=== PATIENT | female | born 1980 | race Caucasian/White ===

== ENCOUNTER 2016-10-19 03:54 | Emergency (ER) | payer MEDICARE, MEDICAID ==
[~2016-10-19] VITALS: Ht 172.7 cm; Wt 143.2 kg
[~2016-10-19 03:54] MED LIST: ABILIFY15 MG PO; ABILIFY20 MG PO; ACETIC ACID2 % AU; AMBIEN10 MG PO; ATIVAN1 MG PO; BACTRIM DS1 TAB OR; BIPOLAR MEDICATION; CELEXA40 M1 OR; CHERATUSSIN OR; CLEOCIN300 MG PO; CYCLOBENZAPRINE10 MG PO; DARVOCET N-100100 - OR; DEPAKOTE250 MG OR; DOXYCYCL HYC100 MG PO; EFFEXOR XR150 MG OR; FLONASE NASAL50 MCG; IMODIUM2 MG PO; KLONOPIN1 MG OR; LITHIUM CARB150 MG PO; LITHIUM CARB300 MG; LYRICA50 MG PO; MEDDOSEPAK PO; NAPROSYN500 MG PO; NYSTATIN100000 M2 EX; NYSTATIN100000 M3 TOP; PERCOCET 5/325M1 TAB OR; PERCOCET 5/325M1 TAB PO; PERCOCET1 TA4 PO; PROZAC10 MG PO; PROZAC20 MG OR; PROZAC40 MG PO; REMERON15 MG PO; RISPERDAL 4MG TA4 MG PO; RISPERDAL2 MG PO; RITALIN10 MG PO; SMZ-TMP DS1 TAB PO; SOLU-MEDROL125 MG IM; TOPAMAX100 MG PO; TRAMADOL HCL50 MG PO; TRAZODONE300 MG PO; ULTRAM50 M1 PO; VENTOLIN HFA IN; VOLTAREN - GENE75 MG PO; VOLTAREN75 MG PO; WELLBUTRIN X1 PO; WELLBUTRIN150 M1 OR; WELLBUTRIN150 M2 PO; ZANAFLEX4 M2 PO; ZITHROMAX250 MG PO; ZOFRAN ODT4 MG PO
[2016-10-19] MEDS ORDERED: PERCOCET 10/31 COMBO PO (04:17)
[2016-10-19] MEDS ORDERED: PROZAC20 MG PO (04:20)
[2016-10-19] MEDS ORDERED: LATUDA60 MG PO (04:21)
[2016-10-19] MEDS ORDERED: FLEXERIL PO (04:22)
[2016-10-19] MEDS ORDERED: VYVANSE50 MG PO (04:24)
[2016-10-19] MEDS ORDERED: XANAX1 MG PO (04:24)
[2016-10-19 06:29] LABS: HEMATOCRIT 41.5 % (37.0-47.0); HEMOGLOBIN 13.4 g/dl (12.0-16.0); IMMATURE GRANULOCYTES 0.7 % (0.0-1.0); MEAN CELL VOLUME 95.2 fL CALC (80.0-100.0); MEAN CORPUSCULAR HGB 30.7 pG CALC (26.0-32.0); MEAN CORPUSCULAR HGB CONC 32.3 g/L CALC (32.0-36.0); NEUT# 14.52 thou/uL (2.00-7.15); RED BLOOD COUNT 4.36 mill/uL (4.20-5.60); RED CELL DISTRI WIDTH 12.2 % (11.5-15.5)
[2016-10-19 06:33] LABS: URINE BILIRUBIN - DIPSTICK NEGATIVE (NEGATIVE); URINE BLOOD DIPSTICK NEGATIVE (NEGATIVE); URINE CLARITY CLEAR; URINE COLOR YELLOW; URINE GLUCOSE - DIPSTICK NEGATIVE (NEGATIVE); URINE KETONE NEGATIVE (NEGATIVE); URINE LEUK ESTERASE NEGATIVE (NEGATIVE); URINE NITRITE - DIPSTICK NEGATIVE (Negative); URINE PROTEIN - DIPSTICK NEGATIVE (NEG-TRACE); URINE SPECIFIC GRAVITY <=1.005; URINE UROBILINOGEN - DIPSTICK 0.2 E.U./dL (0.2)
[2016-10-19 06:46] LABS: ALBUMIN 4.7 g/dL (3.2-5.0); ALKALINE PHOSPHATASE 191 u/l (38-126); ANION GAP 18 (6-22 (CALC)); BILIRUBIN, TOTAL 0.5 mg/dL (0.0-1.4); BUN 12 mg/dL (7-17); BUN/CREATININE RATIO 14 (12-20 (CALC)); CALCIUM 10.4 mg/dL (8.4-10.2); CARBON DIOXIDE 26 mmol/l (22-30); CHLORIDE 100 mmol/l (95-108); CREATININE 0.9 mg/dL (0.5-1.0); GFR > 60 ML/MIN (>=60 (CALC)); GFR FOR AFR.AMER. > 60 ML/MIN (>=60 (CALC)); GLUCOSE 96 mg/dL (65-105); POTASSIUM 3.8 mmol/l (3.5-5.1); SGOT/AST 23 u/l (14-36); SGPT/ALT 25 u/l (9-52); SODIUM 140 mmol/l (137-146); TOTAL PROTEIN 8.7 g/dL (6.3-8.2)
[2016-10-19 06:49] LABS: ACT PARTIAL THROMBO TIME 27.8 SECONDS (20.0-32.5); PROTHROMBIN TIME 10.6 SECONDS (9.0-12.5)
[2016-10-19 10:45] VITALS: BP 94/52
== END 2016-10-19 10:45 ==
LOC: ED 03:54 → ED-I 04:47 → ED 04:47 → ED-I 05:40 → ED 10:45
PROVIDERS: Emergency Medicine
PROC: 0T9B70Z Drainage of Bladder with Drainage Device, Via Natural or Artificial Opening (ICD-10-PCS; principal; 2016-10-19)
DX: S72.122A Displaced fracture of lesser trochanter of left femur, initial encounter for closed fracture (principal); M25.552 Pain in left hip; F41.9 Anxiety disorder, unspecified; F32.9 Major depressive disorder, single episode, unspecified; F17.210 Nicotine dependence, cigarettes, uncomplicated

== ENCOUNTER 2016-11-11 10:11 | Emergency (ER) | payer MEDICARE, MEDICAID ==
[~2016-11-11] VITALS: Ht 172.7 cm; Wt 140.0 kg
[~2016-11-11 10:11] MED LIST changes: +FLEXERIL PO; +LATUDA60 MG PO; +PERCOCET 10/31 COMBO PO; +PROZAC20 MG PO; +VYVANSE50 MG PO; +XANAX1 MG PO
[2016-11-11 11:54] VITALS: BP 121/74
== END 2016-11-11 11:54 | disposition home or self-care (01) ==
LOC: ED 10:11
DX: Z48.02 Encounter for removal of sutures (principal); G89.18 Other acute postprocedural pain; M79.605 Pain in left leg; R22.42 Localized swelling, mass and lump, left lower limb

== ENCOUNTER 2017-05-31 09:52 | Emergency (ER) | payer MEDICARE, MEDICAID ==
[~2017-05-31] VITALS: Ht 172.7 cm; Wt 123.0 kg
[2017-05-31] MEDS ORDERED: VISTARIL25 MG PO (10:10)
[2017-05-31] MEDS ORDERED: NORCO1 TA1 PO (10:10)
[2017-05-31] MEDS ORDERED: WELLBUTRIN SR150 MG PO (10:11)
[2017-05-31] MEDS ORDERED: ULTRAM50 M1 PO (10:58)
[2017-05-31] MEDS ORDERED: CLEOCIN300 MG PO (10:58)
[2017-05-31 11:03] VITALS: BP 144/81
== END 2017-05-31 11:10 | disposition home or self-care (01) ==
LOC: ED 09:52
DX: K04.7 Periapical abscess without sinus (principal); K08.89 Other specified disorders of teeth and supporting structures; S02.5XXA Fracture of tooth (traumatic), initial encounter for closed fracture; F17.210 Nicotine dependence, cigarettes, uncomplicated

== ENCOUNTER → 2018-04-27 | Outpatient (REF) | payer MEDICARE, MEDICAID ==
[~2018-04-27] MED LIST changes: +NORCO1 TA1 PO; +VISTARIL25 MG PO; +WELLBUTRIN SR150 MG PO
[2018-04-27 14:16] LABS: HEMATOCRIT 38.8 % (37.0-47.0); HEMOGLOBIN 12.1 g/dl (12.0-16.0); IMMATURE GRANULOCYTES 0.8 % (0.0-5.0); MEAN CELL VOLUME 92.2 fL CALC (80.0-100.0); MEAN CORPUSCULAR HGB 28.7 pG CALC (26.0-32.0); MEAN CORPUSCULAR HGB CONC 31.2 g/L CALC (32.0-36.0); NEUT# 9.46 thou/uL (2.00-7.15); RED BLOOD COUNT 4.21 mill/uL (4.20-5.60); RED CELL DISTRI WIDTH 13.8 % (11.5-15.5)
== END | disposition home or self-care (01) ==
LOC: LAB 13:57
PROVIDERS: ATTEND Nurse Practitioner Family
DX: D72.829 Elevated white blood cell count, unspecified (principal)

== ENCOUNTER 2021-09-02 11:28 | Emergency (ER) | payer MEDICARE, MEDICAID ==
[~2021-09-02] VITALS: Ht 172.7 cm; Wt 105.0 kg
[2021-09-02 12:00] LABS: URINE BILIRUBIN - DIPSTICK NEGATIVE (NEGATIVE); URINE BLOOD DIPSTICK NEGATIVE (NEGATIVE); URINE COLOR YELLOW; URINE GLUCOSE - DIPSTICK NEGATIVE (NEGATIVE); URINE KETONE NEGATIVE (NEGATIVE); URINE LEUK ESTERASE NEGATIVE (NEGATIVE); URINE NITRITE - DIPSTICK NEGATIVE (Negative); URINE PROTEIN - DIPSTICK NEGATIVE (NEG-TRACE); URINE SPECIFIC GRAVITY <=1.005; URINE UROBILINOGEN - DIPSTICK 0.2 E.U./dL (0.2)
[2021-09-02] MEDS ORDERED: PROTONIX40 M2 PO (12:14)
[2021-09-02] MEDS ORDERED: CIPROFLOXACN500 MG PO (12:14)
[2021-09-02] MEDS ORDERED: ZOFRAN4 MG/TAB PO (12:14)
[2021-09-02 12:42] VITALS: BP 100/58
== END 2021-09-02 12:57 | disposition home or self-care (01) ==
LOC: ED 11:28
PROVIDERS: Family Medicine
DX: R30.0 Dysuria (principal); F41.9 Anxiety disorder, unspecified; F32.A Depression, unspecified; F17.200 Nicotine dependence, unspecified, uncomplicated; Z90.49 Acquired absence of other specified parts of digestive tract; Z88.1 Allergy status to other antibiotic agents

== ENCOUNTER → 2021-12-25 | Emergency (ER) | payer MEDICARE, MEDICAID ==
[2021-12-25] VITALS (8 sets, daily range): BP systolic 94–117; BP diastolic 60–80
[~2021-12-25] VITALS: Ht 172.7 cm; Wt 86.4 kg
[~2021-12-25] MED LIST changes: +CIPROFLOXACN500 MG PO; +METRONIDAZOLE500 MG PO; +PROTONIX40 M2 PO; +ZOFRAN4 MG/TAB PO
[2021-12-25 16:32] LABS: HEMATOCRIT 41.5 % (37.0-47.0); HEMOGLOBIN 12.8 g/dl (12.0-16.0); IMMATURE GRANULOCYTES 1.1 % (0.0-5.0); MEAN CORPUSCULAR HGB 31.4 pG CALC (26.0-32.0); MEAN CORPUSCULAR HGB CONC 30.8 g/dL CAL (32.0-36.0); NEUT# 9.09 thou/uL (2.00-7.15); RED BLOOD COUNT 4.07 mill/uL (4.20-5.60); RED CELL DISTRI WIDTH 12.2 % (11.5-15.5)
[2021-12-25 16:46] LABS: ALBUMIN 1.9 g/dL (3.2-5.0); ALKALINE PHOSPHATASE 217 u/l (38-126); ANION GAP 7 (6-22 (CALC)); BILIRUBIN, TOTAL 0.9 mg/dL (0.0-1.4); BUN 10 mg/dL (7-17); BUN/CREATININE RATIO 12 (12-20 (CALC)); CARBON DIOXIDE 28 mmol/l (22-30); CHLORIDE 107 mmol/l (95-108); CREATININE 0.8 mg/dL (0.5-1.0); GFR FOR AFR.AMER. > 60 ML/MIN (>=60 (CALC)); GFR OTHER RACES > 60 ML/MIN (>=60 (CALC)); LIPASE 23 u/l (23-300); POTASSIUM 3.8 mmol/l (3.5-5.1); SGOT/AST 27 u/l (14-36); SODIUM 138 mmol/l (137-146)
[2021-12-25 17:48] LABS: URINE BILIRUBIN - DIPSTICK NEGATIVE (NEGATIVE); URINE BLOOD DIPSTICK NEGATIVE (NEGATIVE); URINE COLOR DK. YELLOW; URINE GLUCOSE - DIPSTICK NEGATIVE (NEGATIVE); URINE KETONE TRACE mg/dL (NEGATIVE); URINE LEUK ESTERASE NEGATIVE (NEGATIVE); URINE NITRITE - DIPSTICK NEGATIVE (Negative); URINE PH 6.5 (4.5-8.0); URINE PROTEIN - DIPSTICK NEGATIVE (NEG-TRACE)
== END | disposition home or self-care (01) ==
LOC: ED 15:54
PROVIDERS: Family Medicine
DX: K29.70 Gastritis, unspecified, without bleeding (principal); K52.9 Noninfective gastroenteritis and colitis, unspecified; F41.9 Anxiety disorder, unspecified; F32.9 Major depressive disorder, single episode, unspecified; F17.200 Nicotine dependence, unspecified, uncomplicated; Z20.822 Contact with and (suspected) exposure to COVID-19
CPT/HCPCS: Q9967

== ENCOUNTER 2021-12-31 16:26 | Observation (INO) | payer MEDICARE, MEDICAID ==
[2021-12-31] VITALS (38 sets, daily range): BP systolic 67–124; BP diastolic 50–85
[~2021-12-31] VITALS: Ht 172.7 cm; Wt 88.0 kg
[~2021-12-31 16:26] MED LIST changes: -NORCO1 TA1 PO; +PERCOCET1 TA2 PO
[2021-12-31 17:04] LABS: HEMATOCRIT 38.5 % (37.0-47.0); IMMATURE GRANULOCYTES 1.3 % (0.0-5.0); MEAN CELL VOLUME 104.6 fL CALC (80.0-100.0); MEAN CORPUSCULAR HGB 32.6 pG CALC (26.0-32.0); MEAN CORPUSCULAR HGB CONC 31.2 g/dL CAL (32.0-36.0); NEUT# 9.67 thou/uL (2.00-7.15); RED BLOOD COUNT 3.68 mill/uL (4.20-5.60)
[2021-12-31 17:22] LABS: ALBUMIN 1.6 g/dL (3.2-5.0); ALKALINE PHOSPHATASE 179 u/l (38-126); BUN 11 mg/dL (7-17); BUN/CREATININE RATIO 13 (12-20 (CALC)); CHLORIDE 108 mmol/l (95-108); CREATININE 0.9 mg/dL (0.5-1.0); GFR FOR AFR.AMER. > 60 ML/MIN (>=60 (CALC)); GFR OTHER RACES > 60 ML/MIN (>=60 (CALC)); LIPASE 28 u/l (23-300); SGOT/AST 25 u/l (14-36); SODIUM 135 mmol/l (137-146); TOTAL PROTEIN 4.6 g/dL (6.3-8.2)
[2021-12-31 17:28] LABS: ANION GAP 10 (6-22 (CALC)); CARBON DIOXIDE 22 mmol/l (22-30); POTASSIUM 4.8 mmol/l (3.5-5.1)
[2021-12-31 19:01] LABS: URINE BILIRUBIN - DIPSTICK NEGATIVE (NEGATIVE); URINE BLOOD DIPSTICK SMALL (NEGATIVE); URINE COLOR YELLOW; URINE GLUCOSE - DIPSTICK NEGATIVE (NEGATIVE); URINE KETONE NEGATIVE (NEGATIVE); URINE LEUK ESTERASE NEGATIVE (NEGATIVE); URINE PROTEIN - DIPSTICK NEGATIVE (NEG-TRACE); URINE SPECIFIC GRAVITY 1.015; URINE UROBILINOGEN - DIPSTICK 0.2 E.U./dL (0.2)
[2021-12-31 19:06] LABS: URINE NITRITE - DIPSTICK NEGATIVE (Negative)
[2021-12-31 19:16] LABS: URINE SQUAMOUS EPITHELIAL CELL MANY EPI/hpf (0-FEW)
[2021-12-31] MEDS ORDERED: HALDOL1 M1 PO (20:08)
[2021-12-31] MEDS ORDERED: PROZAC20 MG PO (20:08)
[2021-12-31] MEDS ORDERED: SEROQUEL XR400 MG PO (20:09)
[2021-12-31] MEDS ORDERED: ADDERALL10 MG PO (20:09)
[2022-01-01 04:03] VITALS: BP 100/49
[2022-01-01 08:20] VITALS: BP 108/62
[2022-01-01 08:37] LABS: HEMATOCRIT 37.8 % (37.0-47.0); HEMOGLOBIN 11.7 g/dl (12.0-16.0); MEAN CORPUSCULAR HGB 32.5 pG CALC (26.0-32.0); RED BLOOD COUNT 3.6 mill/uL (4.20-5.60); RED CELL DISTRI WIDTH 14.3 % (11.5-15.5)
[2022-01-01 10:00] LABS: BUN 13 mg/dL (7-17); BUN/CREATININE RATIO 17 (12-20 (CALC)); CARBON DIOXIDE 20 mmol/l (22-30); CHLORIDE 113 mmol/l (95-108); CREATININE 0.8 mg/dL (0.5-1.0); GFR FOR AFR.AMER. > 60 ML/MIN (>=60 (CALC)); GFR OTHER RACES > 60 ML/MIN (>=60 (CALC)); MAGNESIUM 1.6 mg/dL (1.6-2.3); SODIUM 137 mmol/l (137-146)
[2022-01-01 10:01] LABS: ANION GAP 10 (6-22 (CALC)); POTASSIUM 5.5 mmol/l (3.5-5.1)
[2022-01-01] MEDS ORDERED: VITAMIN D32000 UNI2 PO (13:23)
[2022-01-01] MEDS ORDERED: VITAMIN B-122500 MCG PO (13:24)
[2022-01-01] MEDS ORDERED: LIPITOR10 M1 PO (13:25)
[2022-01-01 15:07] VITALS: BP 98/63
[2022-01-01 15:44] VITALS: BP 120/58
[2022-01-01 19:38] VITALS: BP 116/74
[2022-01-02 01:09] VITALS: BP 95/44
[2022-01-02 05:44] VITALS: BP 96/59
[2022-01-02 06:08] LABS: HEMATOCRIT 35.6 % (37.0-47.0); HEMOGLOBIN 10.8 g/dl (12.0-16.0); IMMATURE GRANULOCYTES 0.7 % (0.0-5.0); MEAN CELL VOLUME 107.2 fL CALC (80.0-100.0); MEAN CORPUSCULAR HGB 32.5 pG CALC (26.0-32.0); MEAN CORPUSCULAR HGB CONC 30.3 g/dL CAL (32.0-36.0); NEUT# 12.28 thou/uL (2.00-7.15); RED BLOOD COUNT 3.32 mill/uL (4.20-5.60); RED CELL DISTRI WIDTH 14.2 % (11.5-15.5)
[2022-01-02 06:33] LABS: ANION GAP 7 (6-22 (CALC)); BUN 10 mg/dL (7-17); BUN/CREATININE RATIO 13 (12-20 (CALC)); CARBON DIOXIDE 22 mmol/l (22-30); CHLORIDE 113 mmol/l (95-108); CREATININE 0.8 mg/dL (0.5-1.0); GFR FOR AFR.AMER. > 60 ML/MIN (>=60 (CALC)); GFR OTHER RACES > 60 ML/MIN (>=60 (CALC)); MAGNESIUM 1.6 mg/dL (1.6-2.3); SODIUM 138 mmol/l (137-146)
[2022-01-02 08:00] VITALS: BP 96/59
[2022-01-02] MEDS ORDERED: METRONIDAZOLE500 MG PO (11:39)
[2022-01-02] MEDS ORDERED: CIPROFLOXACN500 MG PO (11:40)
[2022-01-02] MEDS ORDERED: ONDANSETRON4 MG PO (11:42)
[2022-01-02 16:00] VITALS: BP 105/52
== END 2022-01-02 16:14 | disposition home or self-care (01) ==
LOC: ED 16:26 → ED-I 18:00 → ED 20:30 → MS2 20:31
PROVIDERS: Family Medicine; Nurse Practitioner; ADMIT Hospitalist; ATTEND Hospitalist
DX: K50.00 Crohn's disease of small intestine without complications (principal); E87.5 Hyperkalemia; E87.2 Acidosis; M79.7 Fibromyalgia; F20.9 Schizophrenia, unspecified; F41.9 Anxiety disorder, unspecified; F31.9 Bipolar disorder, unspecified; F17.210 Nicotine dependence, cigarettes, uncomplicated; Z20.822 Contact with and (suspected) exposure to COVID-19
CPT/HCPCS: J2060; Q9967

== ENCOUNTER 2022-01-11 17:50 | Observation (INO) | payer MEDICARE, MEDICAID ==
[~2022-01-11] VITALS: Ht 172.7 cm; Wt 83.0 kg
[2022-01-11] VITALS (13 sets, daily range): BP systolic 94–171; BP diastolic 57–149
[~2022-01-11 17:50] MED LIST changes: +ADDERALL10 MG PO; +HALDOL1 M1 PO; +LIPITOR10 M1 PO; +ONDANSETRON4 MG PO; +SEROQUEL XR400 MG PO; +VITAMIN B-122500 MCG PO; +VITAMIN D32000 UNI2 PO
--- NOTE | 2022-01-11 18:04 | NUR ---
PT TO [facility]AN[facility] VIA
--- NOTE | 2022-01-11 18:56 | NUR ---
ATTEMPTED TO PLACE AN IV 4 TIMES. UNABLE.
--- NOTE | 2022-01-11 19:00 | NUR ---
ASSUMED CARE OF PT. RESTINGIN ROOM WITH SUPPORT PERSON AT BS.
--- NOTE | 2022-01-11 19:00 | NUR ---
ASSUMED CARE OF PT. PT RESTING WITH SUPPORT PERSON AT BS.
[2022-01-11 19:21] LABS: HEMATOCRIT 38.8 % (37.0-47.0); HEMOGLOBIN 11.6 g/dl (12.0-16.0); IMMATURE GRANULOCYTES 0.5 % (0.0-5.0); MEAN CORPUSCULAR HGB CONC 29.9 g/dL CAL (32.0-36.0); NEUT# 12.07 thou/uL (2.00-7.15); RED BLOOD COUNT 3.41 mill/uL (4.20-5.60); RED CELL DISTRI WIDTH 16.7 % (11.5-15.5)
[2022-01-11 19:22] LABS: MEAN CELL VOLUME 113.8 fL CALC (80.0-100.0)
[2022-01-11 19:32] LABS: ALBUMIN 1.7 g/dL (3.2-5.0); ALKALINE PHOSPHATASE 147 u/l (38-126); ANION GAP 7 (6-22 (CALC)); BILIRUBIN, TOTAL 0.7 mg/dL (0.0-1.4); BUN 13 mg/dL (7-17); BUN/CREATININE RATIO 15 (12-20 (CALC)); CARBON DIOXIDE 23 mmol/l (22-30); CHLORIDE 111 mmol/l (95-108); CREATININE 0.8 mg/dL (0.5-1.0); GFR FOR AFR.AMER. > 60 ML/MIN (>=60 (CALC)); GFR OTHER RACES > 60 ML/MIN (>=60 (CALC)); LIPASE 23 u/l (23-300); POTASSIUM 4.1 mmol/l (3.5-5.1); SGOT/AST 30 u/l (14-36); SODIUM 137 mmol/l (137-146); TOTAL PROTEIN 4.7 g/dL (6.3-8.2)
--- NOTE | 2022-01-11 20:00 | NUR ---
Reassessment of patient completed. No distress noted.
--- NOTE | 2022-01-11 21:00 | NUR ---
Reassessment of patient completed. No distress noted.
--- NOTE | 2022-01-11 22:00 | NUR ---
Reassessment of patient completed. No distress noted.
--- NOTE | 2022-01-11 23:00 | NUR ---
Reassessment of patient completed. No distress noted.
[2022-01-11 23:24] LABS: URINE BLOOD DIPSTICK NEGATIVE (NEGATIVE); URINE COLOR YELLOW; URINE GLUCOSE - DIPSTICK NEGATIVE (NEGATIVE); URINE KETONE TRACE mg/dL (NEGATIVE); URINE LEUK ESTERASE TRACE (NEGATIVE); URINE PH 6.5 (4.5-8.0); URINE PROTEIN - DIPSTICK 30 mg/dL (NEG-TRACE); URINE SPECIFIC GRAVITY 1.025; URINE UROBILINOGEN - DIPSTICK 0.2 E.U./dL (0.2)
[2022-01-11 23:25] LABS: URINE BILIRUBIN - DIPSTICK MODERATE (NEGATIVE); URINE NITRITE - DIPSTICK POSITIVE (Negative)
[2022-01-11 23:29] LABS: URINE BACTERIA MANY hpf; URINE SQUAMOUS EPITHELIAL CELL MANY EPI/hpf (0-FEW); URINE WBC 20-50 WBC/hpf (0-5)
[2022-01-12] VITALS (8 sets, daily range): BP systolic 90–124; BP diastolic 34–83
--- NOTE | 2022-01-12 00:01 | NUR ---
Reassessment of patient completed. No distress noted.
--- NOTE | 2022-01-12 01:00 | NUR ---
PT TRANSFERRED TO MED SURG.
--- NOTE | 2022-01-12 01:30 | NUR ---
PATIENT ADMITTED FROM ER VIA STRETCHER WITH ER STAFF IN ATTENDANCE. PATIENT STATES THAT SHE IS UNABLE TO ASSIST TO MOVE TO THE BED-MAX ASSIST TO TRANSFER TO THE BED. PATIENT COLOR IS PALE. SKIN IS COOL AND DRY. IV SITE TO RIGHT HAND INTACT WITH GOOD BLOOD RETURN. IVF HUNG AND INFUSING AT 125CC/HR. PATIENT WITH MULTIPLE COMPLAINTS REGUARDING ABD PAIN, NAUSEA AND VOMITTING-STATES THAT THESE SX HAVE BEEN GOING ON FOR ALONG TIME. UNABLE TO TELL WHEN HER LAST BM WAS-MAYBE 2 DAYS AGO. ABD IS SOFT WITH HYPOACTIVE BS. STATES THAT SHE WAS REFERRED TO DR. MARY ELLEN MARQUEZ WHEN DISCARGED FROM [facility] A COUPLE OF WEEKS AGO BUT TESTING WAS NOT COMPLETED FOR SOME REASON. LUNGS ARE CLEAR. PATIENT STATES THAT SHE HAS HAD LARGE WEIGHT LOSS OVER LAST FEW MONITHS. LONG PSY HX INCLUDING BIPOLAR, SCHIZOPHRENIA, DEPRESSION AND ANXIETY. ALSO CHRONIC BACK AND LEFT LEG PAIN. SEE PSY AND PAIN MANAGEMENT FOR MEDS. PATIENT WITH MULTIPLE SCABBED AREAS ON BOTH ARMS WELL SCRATHCHES-STATES THAT THEY ARE FROM HER CAT AND BURNED HER ARMS GETTING SOMETHING OUT OF THE OVEN. ORFIENTED TO ROOM AND SURROUNDINGS. INSTRUCTED ON USE OF NURSE CALL LIGHT SYSTEM AND TV. SAFETY PRECAUTIONS REINFORCED. CALL LIGHT IN REACH. WILL CONT TO MONITOR.
--- NOTE | 2022-01-12 02:00 | NUR ---
PATIENT MOVED VIA BED TO ROOM 260 TO BE CLOSER TO THE NURSES STATION. STATES THAT SHE HAS HAD FREQUENT FALLS AT HOME AND THE LAST TIME SHE WAS HER AT THIS HOSPITAL. STATES THAT SHE CRAWLS TO GET TO THE BATHROOM AT HOME. STATES THAT SHE HAS SEVERE WEAKNESS AND CAN'T WALK. PATIENT MAX ASSIST TO THE BSC TO VOID AND THEN ASSISTED BACK INTO BED. BED ALARM IN PLACE FOR PATIENT SAFETY. CALL LIGHT IN REACH. WILL CONT TO MONITOR.
--- NOTE | 2022-01-12 02:15 | NUR ---
REPEAT LACTIC ACID IS 1.3. WILL CONT TO MONITOR.
--- NOTE | 2022-01-12 04:48 | NUR ---
PATIENT RESTING IN BED-VOMITTED MODERATE AMT. TOO EARLY FOR MORE ZOFRAN AT THIS TIME. EMOTIONAL AND C/O PAIN. IVF PATENT AND INFUSING VIA RIGHT HAND SITE AT 125CC/HR. BED ALARM IN PLACE FOR PATIENT SAFETY. CALL LIGHT IN REACH. WILL CONT TO MONITOR.
[2022-01-12 05:26] LABS: HEMATOCRIT 36.2 % (37.0-47.0); HEMOGLOBIN 10.9 g/dl (12.0-16.0); IMMATURE GRANULOCYTES 0.6 % (0.0-5.0); MEAN CELL VOLUME 113.8 fL CALC (80.0-100.0); MEAN CORPUSCULAR HGB 34.3 pG CALC (26.0-32.0); MEAN CORPUSCULAR HGB CONC 30.1 g/dL CAL (32.0-36.0); NEUT# 11.06 thou/uL (2.00-7.15); RED BLOOD COUNT 3.18 mill/uL (4.20-5.60); RED CELL DISTRI WIDTH 16.8 % (11.5-15.5)
[2022-01-12 05:45] LABS: ALBUMIN 1.6 g/dL (3.2-5.0); ALKALINE PHOSPHATASE 150 u/l (38-126); BILIRUBIN, TOTAL 0.6 mg/dL (0.0-1.4); BUN 13 mg/dL (7-17); BUN/CREATININE RATIO 17 (12-20 (CALC)); CARBON DIOXIDE 25 mmol/l (22-30); CHLORIDE 109 mmol/l (95-108); CREATININE 0.8 mg/dL (0.5-1.0); GFR FOR AFR.AMER. > 60 ML/MIN (>=60 (CALC)); GFR OTHER RACES > 60 ML/MIN (>=60 (CALC)); SGOT/AST 31 u/l (14-36); SODIUM 137 mmol/l (137-146); TOTAL PROTEIN 4.5 g/dL (6.3-8.2)
[2022-01-12 05:46] LABS: ANION GAP 6 (6-22 (CALC)); POTASSIUM 3.2 mmol/l (3.5-5.1)
--- NOTE | 2022-01-12 08:00 | NUR ---
GOT REPORT FROM DOMESTIC FREIGHT FORWARDER. PATIENT ASSESSED. AOX3. PATIENT SEEMS TO BE CONFUSED ABOUT PAST INFORMATION. PATIENT STATES THAT HER STOMACH IS HURTING. SHE FEELS LIKE SHE HAS INDIGESTION AND FEELS CONSTIPATED. NO NAUSEA AT THIS TIME. CALL LIGHT AND BEDSIDE TABLE WITH IN REACH. ADVISED TO CALL IF SHE NEEDS ANYTHING.
[2022-01-12] MEDS ORDERED: ADDERALL10 MG PO (11:35)
[2022-01-12] MEDS ORDERED: HYDROXYZ PAM25 MG PO (11:36)
[2022-01-12] MEDS ORDERED: PROZAC10 MG PO (11:37)
[2022-01-12] MEDS ORDERED: RISPERIDONE2 MG PO (11:39)
[2022-01-12] MEDS ORDERED: AMBIEN5 MG PO (11:39)
[2022-01-12] MEDS ORDERED: BACLOFEN10 MG PO (11:47)
[2022-01-12] MEDS ORDERED: CARAFATE1 GM PO (11:51)
[2022-01-12] MEDS ORDERED: IMITREX100 MG PO (11:54)
[2022-01-12] MEDS ORDERED: DICLOFENAC SODI75 M1 PO (11:55)
[2022-01-12] MEDS ORDERED: CYMBALTA60 MG PO (11:57)
[2022-01-12] MEDS ORDERED: OLANZAPINE5 MG PO (11:59)
--- NOTE | 2022-01-12 12:00 | NUR ---
PATIENT IN BED WATCHING TV, NO SXS OF DISTRESS. CALL LIGHT AND BEDSIDE TABLE WITH IN REACH.
--- NOTE | 2022-01-12 16:00 | NUR ---
PATIENT SLEEPING. CALL LIGHT AND BEDSIDE TABLE WITH IN REACH.
--- NOTE | 2022-01-12 18:15 | NUR ---
Patient called for assistance back to bed from bedside commode. and Anthony went in to assist patient. Patient tried several times to stand up from commode with our help and was not able to. Anthony went to get more help for patient. Nurse Anthony Germain and assisted patient up and at this time the patient started to buckle down to the floor but did not fall. Patient was assisted back to bed with max assist.
--- NOTE | 2022-01-12 20:15 | NUR ---
PATIENT RESTING IN BED-AWAKE AND EMOTIONAL. ORIENTED TO PERSON AND PLACE. PATIENT WITH NUMEROUS COMPLAINTS INCLUDING ABD AND LEFT LEG PAIN-MEDICATED WITH LORTAB 5/325MG PO FOR PAIN. MEDICATED WITH XANAX 1MG PO FOR ANXIETY. IVF RESTARTED VIA RIGHT HAND IV SITE AT 125CC/HR. ATTEMPT MADE TO CALM PATIENT WITH LITTLE SUCCESS. PATIENT C/O NAUSEA AND MEDICATED WITH ZOFRAN ORDERED FOR NAUSEA. BED ALARM IN PLACE FOR PATIENT SAFETY. CALL LIGHT IN REACH. WILL CONT TO MONITOR.
--- NOTE | 2022-01-12 21:15 | NUR ---
PATIENT RESTING IN BED-STATES THAT SHE IS SEEING PICTURES ON THE CEILING. VERY EMOTIONAL AND WANTS TO KNOW WHY EVERYBODY IS MAN TO HER. ATTEMPT TO REASSURE PATIENT WITH LITTLE SUCCESS. SPOKE WITH PATIENT GRANDMOTHER RFEGUARDING PATIENT STATUS AND SURRENT MEDICATIONS THAT THE PATIENT TAKES AT HOME. FELIPE HER GRANDMOTHER STATES THAT SHE GIVES THE MEDICATIONS TO HER GRANDDAUGHTER BECAUSE THE PATIENT IS NOT ABLE TO MANAGE HER MEDICATIONS HERSELF. PLACED CALL TO DR. NIEVES REGUARDING PATIENT PSY MEDICATIONS AND RECIEVED ORDER TO RESTART SOME OF HER HOME MEDS. GRANDMOTHER AND PATIENT WERE BOTH NOTIFIED AND WILL MEDICATE PATIENT WHEN PROFILED. BED ALARM IN PLACE-WILL CONT TO MONITOR.
--- NOTE | 2022-01-12 22:12 | NUR ---
PATIENT RESTING IN BED-MEDICATED WITH ZYPREXA, CYMBALTA AND VISTARIL ORDERED.HALDOL NOT AVAILABLE AT THIS TIME. CONT TO C/O ABD AND LEFT LEG PAIN EVEN AFTER PAINMEDS GIVEN. CALL LIGHT IN REACH. WILL CONT TO MONITOR.
--- NOTE | 2022-01-13 00:04 | NUR ---
PATIENT RESTING IN BED-APPEARS CLAMER AT THIS TIME. IVF PATENT AND INFUSING VIA RIGHT HAND SITE AT 125CC/HR. LEVOQUIN INFUSING ORDERED. BED ALARM IN PLACE FOR PATIENT SAFETY. SAFETY PRECAUTIONS REINFORCED. CALL LIGHT IN REACH. WILL CONT TO MONITOR.
--- NOTE | 2022-01-13 01:54 | NUR ---
CALLED TO PATIENT ROOM AND PATIENT IS HALLUCINATING-STATES THAT THERE IS 3 OTHER PEOPLE IN ROOM AND THERE IS NO ONE ELSE IN THE ROOM. PATIENT WITH PSYCH HX. ATTEMPT WAS MADE TO REORIENT PATIENT WITH LITTLE SUCCESS. IVF PATENT AND INFUSING VIA RIGHT HAND SITE. BED ALARM IN PLACE FOR PATIENT SAFETY. SAFETY PRECAUTIONS REINFORCED. CALL LIGHT IN REACH. WILL CONT TO MONITOR.
--- NOTE | 2022-01-13 03:58 | NUR ---
PATIENT CONT TO HAVE HALLUCINATIONS-UNABLE TO VOID ON BEDPAN. BLADDER SCAN FOR >999. #16 SAMMARINESE TEE CATH INSERTED BY BRITTNEY FAM RN WITHOUT ANY DIFFICULTY. DRAINED 1000CC OF EJ URINE INITIALLY. CLAMPED FOR 30 MIN AND THEN DRAINED ANOTHER 600CC OF EJ URINE. PATIENT CONT TO HAVE MULTIPLE COMPLANITS. IVF PATENT AND INFUSING VIA RIGHT HAND SITE AT 125CC/HR. SITE REMAINS HEALTHY WITH GOOD BLOOD RETURN. PATIENT TAKING PO WATER IN MODERATE AMT WITH NO VOMITTING. SAFETY PRECAUTIONS REINFORCED. CALL LIGHT IN REACH.BED ALARM IN PLACE FOR PAITENT SAFETY. WILL CONT TO MONITOR.
[2022-01-13 04:19] VITALS: BP 103/58
[2022-01-13 05:39] LABS: HEMATOCRIT 33.9 % (37.0-47.0); HEMOGLOBIN 10.2 g/dl (12.0-16.0); IMMATURE GRANULOCYTES 0.6 % (0.0-5.0); MEAN CELL VOLUME 113.8 fL CALC (80.0-100.0); MEAN CORPUSCULAR HGB 34.2 pG CALC (26.0-32.0); MEAN CORPUSCULAR HGB CONC 30.1 g/dL CAL (32.0-36.0); NEUT# 8.27 thou/uL (2.00-7.15); RED BLOOD COUNT 2.98 mill/uL (4.20-5.60); RED CELL DISTRI WIDTH 16.8 % (11.5-15.5)
[2022-01-13 06:00] LABS: ALBUMIN 1.5 g/dL (3.2-5.0); ALKALINE PHOSPHATASE 132 u/l (38-126); ANION GAP 2 (6-22 (CALC)); BILIRUBIN, TOTAL 0.6 mg/dL (0.0-1.4); BUN 9 mg/dL (7-17); BUN/CREATININE RATIO 12 (12-20 (CALC)); CARBON DIOXIDE 24 mmol/l (22-30); CHLORIDE 113 mmol/l (95-108); CREATININE 0.7 mg/dL (0.5-1.0); GFR FOR AFR.AMER. > 60 ML/MIN (>=60 (CALC)); GFR OTHER RACES > 60 ML/MIN (>=60 (CALC)); MAGNESIUM 1.6 mg/dL (1.6-2.3); POTASSIUM 3.2 mmol/l (3.5-5.1); SGOT/AST 26 u/l (14-36); SODIUM 137 mmol/l (137-146); TOTAL PROTEIN 4.1 g/dL (6.3-8.2)
[2022-01-13 06:08] VITALS: BP 105/60
--- NOTE | 2022-01-13 08:00 | NUR ---
GOT REPORT FROM VOLUMETRIC WEIGHER NURSE. PATIENT ASSESSED. AOX3. PATIENT STATES THAT SHE SEES HER DAUGHTER IN THE ROOM. PATIENT HAS NO VISITORS AT THIS TIME. INFORMED PATIENT THAT THERE ARE NO VISITORS AT THE TIME AND SHE STATES "OH YEAH I FORGOT". MEDICATION GIVEN. CALL LIGHT AND BEDSIDE TABLE WITHIN REACH. ADVISED TO CALL IF SHE NEEDED ANYTHING. PATIENT VERBALIZED UNDERSTANDING.
--- NOTE | 2022-01-13 12:00 | NUR ---
HELPED TRANSFER PATIENT INTO BED, REMOVED TEE. MEDICATION GIVEN. PATIENT ENCOURAGED TO DRINK FLUIDS. PATIENT DENIES NAUSEA AT THIS TIME. CALL LIGHT AND BEDSIDE TABLE WITH IN REACH. ADVISED TO CALL IF SHE NEEDED ANYTHING.
--- NOTE | 2022-01-13 13:12 | NUR ---
Pt seen this am for treatment. She was resting in bed, supine. She c/o pain with LE movements L>R. AROM ex performed to RLE and AAROM to LLE. Pt was able to roll side to side with use of bed rails with modified indep and difficult for pt. Pt moved supine to sit with mod assist x1 for upper body and LEs. Sitting on edge of bed static with SBA to min assist. Pt transferred to BS chair with mod assist of 1, pt legs unsteady with movement and some buckling noted. Pt stood with mod/max assist x1 with RW and much encouragement. She was able to advance RLE and then LLE x 2 reps in stance and then had to sit. Pt vomited bile afterwards. She was left OOB in chair aprox 1 hour and then returned to bed with same assist. Pt left in bed with nurse present. BP 95/49supine, after treansfer 114/81, after standing 109/73. HR 88, 87, 102. 02 sats 100% stable. A- Pt with complaints of pain, general weakness noted and requiring mod/mod+ assist with mobility. AMPAC unchanged from eval 14, ECF P- Will continue to follow and progress mobility as tolerated.
[2022-01-13 13:54] VITALS: BP 102/58
[2022-01-13 15:57] VITALS: BP 110/73
--- NOTE | 2022-01-13 18:55 | NUR ---
REPORT RECIEVED FROM OUTGOING SHIFT. PATIENT RESTING IN BED C/O NAUSEA FAMILY AT BEDSIDE VISTING. COFFEE COLORED EMESIS NOTED. NO SOB NOTED
[2022-01-13 20:12] VITALS: BP 109/55
--- NOTE | 2022-01-13 22:20 | NUR ---
COMPLAIN OF LOWER BACK ACHING DISCOMFORT. MEDICATED WITH LORTAB FOR PAIN RELIEF. MAXIMUM ASSIST PROVIDED FOR USE BSC. VOIDED WITHOUT DIFFICULTY.
--- NOTE | 2022-01-14 02:30 | NUR ---
R HAND PUFFY IV FLUIDS SHOW OCCLUSION. NEW IV SITE STARTED AT LEFT HAND ON FIRST ATTEMPT WITH #22 AUTOGUARD. GOOD BLOOD RETURN NOTED . PATIENT PAIN FREE AND FREE FROM NAUSEA AT THIS TIME.
[2022-01-14 04:23] VITALS: BP 100/61
--- NOTE | 2022-01-14 05:24 | NUR ---
RESTING QUIETLY WITH EYES CLOSED NO ACUTE DISTRESS NOTED RESPIRATIONS EVEN AND UNLABORED
[2022-01-14 05:28] LABS: HEMATOCRIT 30.8 % (37.0-47.0); HEMOGLOBIN 9.2 g/dl (12.0-16.0); IMMATURE GRANULOCYTES 0.6 % (0.0-5.0); MEAN CELL VOLUME 115.4 fL CALC (80.0-100.0); MEAN CORPUSCULAR HGB 34.5 pG CALC (26.0-32.0); MEAN CORPUSCULAR HGB CONC 29.9 g/dL CAL (32.0-36.0); NEUT# 5.75 thou/uL (2.00-7.15); RED BLOOD COUNT 2.67 mill/uL (4.20-5.60); RED CELL DISTRI WIDTH 16.3 % (11.5-15.5)
[2022-01-14 05:55] LABS: ANION GAP 6 (6-22 (CALC)); BUN 5 mg/dL (7-17); BUN/CREATININE RATIO 8 (12-20 (CALC)); CARBON DIOXIDE 22 mmol/l (22-30); CHLORIDE 115 mmol/l (95-108); CREATININE 0.6 mg/dL (0.5-1.0); GFR FOR AFR.AMER. > 60 ML/MIN (>=60 (CALC)); GFR OTHER RACES > 60 ML/MIN (>=60 (CALC)); MAGNESIUM 1.6 mg/dL (1.6-2.3); POTASSIUM 3.4 mmol/l (3.5-5.1); SODIUM 139 mmol/l (137-146)
[2022-01-14 06:17] VITALS: BP 119/59
--- NOTE | 2022-01-14 07:00 | NUR ---
RECEIVE REPORT FROM JAM GALLEGOS.
--- NOTE | 2022-01-14 08:00 | NUR ---
PATIENT ALERT AND ORIENTED X3. REFER PAIN AT THIS TIME. MEDICATION FOR PAIN EXPLAN TO GIVED SOON POSSIBLE. PATIENT IS EDUCATED ABOUD MEDICATIONS AND NURSING PLAN FOR TODAY. PATIENT REFER UNDERSTAND.
--- NOTE | 2022-01-14 12:00 | NUR ---
PATIENT RESTING IN BED. STABLE AT THIS TIME.
--- NOTE | 2022-01-14 12:00 | NUR ---
PATIENT RESTING IN BED. STABLE AT THIS TIME.
--- NOTE | 2022-01-14 13:47 | NUR ---
Pt resting in bed, stated she was going to be transferred for GI follow up today. She was cooperative with treatment. LE ex performed in supine incuding AROM to LLE which was painful to move but improved from yesterday. Manual resist for hip ext on R, Active heel slides, SAQ, pillow squeezing, bridging. and isometric glut and quad sets. Pt moves supine to sit with min/mod assist using bed rail. Sit to stand with min/mod assist x1. She maintained standing with CGA for 20 sec and then proceeding to transfer to recliner with min/mod assist. She stood and was able to use RW to ambulate x 10 in room with Min assist. Pt reported fatique afterwards. She was left in chair with callbell/phone and tray in reach. BP 101/65 to 117/80, HR 81, 85, 02sat 96-99% Pt reported no further needs. A- Pt able to ambulate today 10', LLE with increase movement and decrease c/o pain today. She continues to have decrease mobility skills. [facility] ECF P- Pt for transfer today.
[2022-01-14 14:38] VITALS: BP 110/81
--- NOTE | 2022-01-14 16:32 | NUR ---
PATIENT STABLE AT THIS TIME. PAIN MEDICATIONS IS DONE. YOBANI MACARIO FOR FALL AND SAFE PRECAUTIONS.
[2022-01-14 18:51] VITALS: BP 112/70
[2022-01-14 19:39] VITALS: BP 112/70
--- NOTE | 2022-01-14 20:00 | NUR ---
PT IN BED AWAKE, ALERT AND ORIENTED, NO DISTRESS NOTED, CALL LIGHT IN REACH
--- NOTE | 2022-01-15 | NUR ---
PT IN BED AWAKE, PT STATES SHE IS IN PAIN, GAVE PAIN MED, NO DISTRESS NOTED, CALL LIGHT IN REACH
[2022-01-15 03:32] VITALS: BP 112/47
--- NOTE | 2022-01-15 04:00 | NUR ---
PT IN BED ASLEEP NO OVERNIGHT EVENTS, NO DISTRESS NOTED, CALL LIGHT IN REACH
[2022-01-15 06:30] LABS: HEMATOCRIT 30.1 % (37.0-47.0); HEMOGLOBIN 9.1 g/dl (12.0-16.0); IMMATURE GRANULOCYTES 0.7 % (0.0-5.0); MEAN CELL VOLUME 114.9 fL CALC (80.0-100.0); MEAN CORPUSCULAR HGB 34.7 pG CALC (26.0-32.0); MEAN CORPUSCULAR HGB CONC 30.2 g/dL CAL (32.0-36.0); NEUT# 5.79 thou/uL (2.00-7.15); RED BLOOD COUNT 2.62 mill/uL (4.20-5.60); RED CELL DISTRI WIDTH 15.4 % (11.5-15.5)
[2022-01-15 07:12] LABS: ALBUMIN 1.3 g/dL (3.2-5.0); ALKALINE PHOSPHATASE 122 u/l (38-126); ANION GAP 6 (6-22 (CALC)); BUN 3 mg/dL (7-17); BUN/CREATININE RATIO 6 (12-20 (CALC)); CARBON DIOXIDE 19 mmol/l (22-30); CHLORIDE 118 mmol/l (95-108); CREATININE 0.6 mg/dL (0.5-1.0); GFR FOR AFR.AMER. > 60 ML/MIN (>=60 (CALC)); GFR OTHER RACES > 60 ML/MIN (>=60 (CALC)); MAGNESIUM 1.6 mg/dL (1.6-2.3); POTASSIUM 3.3 mmol/l (3.5-5.1); SGOT/AST 26 u/l (14-36); SODIUM 139 mmol/l (137-146); TOTAL PROTEIN 3.8 g/dL (6.3-8.2)
--- NOTE | 2022-01-15 07:13 | NUR ---
RECEIVE REPORT FROM NGHIA GALLEGOS.
[2022-01-15 07:22] LABS: BILIRUBIN, TOTAL 0.3 mg/dL (0.0-1.4)
[2022-01-15 08:00] VITALS: BP 138/76
--- NOTE | 2022-01-15 08:00 | NUR ---
PATIENT ALERT AND ORIENTED X3. PATIENT REFER PAIN. MEDICATION FOR PAIN IS DONE. EXPLAIN THE PATIENT NURSING PLAN FOR TODAY. MEDICATIONS AND POSSIBLE TRANSFER FOR OTHER FACILITY. PATIENT REFER UNDERSTAND.
--- NOTE | 2022-01-15 10:03 | NUR ---
PATIENT IS TRANSFER TODAY TO OTHER FACILITY. THE REPORT IS READY GIVED TO SYBIL GALLEGOS IN [facility]. I NOTIFY TO THE FAMILY THE TRANSFER (SON AND DAUGHTER IN LAW). PATIENT IS TRANSFER WITH IV SIZE. PATIENT STABLE AT THIS TIME.
== END 2022-01-15 10:15 ==
LOC: ED 17:50 → ED-I 23:20 → ED 23:43 → MS2 23:44
PROVIDERS: Family Medicine; Nurse Practitioner; ADMIT Internal Medicine; ATTEND Internal Medicine
PROC: 0T9B70Z Drainage of Bladder with Drainage Device, Via Natural or Artificial Opening (ICD-10-PCS; principal; 2022-01-13)
DX: K21.9 Gastro-esophageal reflux disease without esophagitis (principal); N39.0 Urinary tract infection, site not specified; E87.6 Hypokalemia; E88.09 Other disorders of plasma-protein metabolism, not elsewhere classified; R20.2 Paresthesia of skin; F31.9 Bipolar disorder, unspecified; F41.9 Anxiety disorder, unspecified; F20.9 Schizophrenia, unspecified; M79.7 Fibromyalgia; B95.2 Enterococcus as the cause of diseases classified elsewhere; F17.210 Nicotine dependence, cigarettes, uncomplicated; Z88.1 Allergy status to other antibiotic agents; Z88.0 Allergy status to penicillin; Z16.11 Resistance to penicillins; Z16.21 Resistance to vancomycin; Z20.822 Contact with and (suspected) exposure to COVID-19
CPT/HCPCS: J0878; J1650; J1956; Q3014; S0164

== ENCOUNTER 2022-08-13 17:46 | Emergency (ER) | payer MEDICARE, MEDICAID ==
[~2022-08-13] VITALS: Ht 172.7 cm; Wt 150.0 kg
[2022-08-13] VITALS (14 sets, daily range): BP systolic 102–138; BP diastolic 67–103
[~2022-08-13 17:46] MED LIST changes: +ACEBUTOLOL200 MG PO; +ALPRAZOLAM0.5 M2 PO; +AMBIEN5 MG PO; +BACLOFEN10 MG PO; +CARAFATE1 GM PO; +CYMBALTA60 MG PO; +DICLOFENAC SODI75 M1 PO; +HYDROXYZ HCL25 MG PO; +HYDROXYZ PAM25 MG PO; +IMITREX100 MG PO; +MIDODRINE10 MG PO; +OLANZAPINE5 MG PO; +PRISTIQ25 MG PO; +RISPERIDONE2 MG PO; +VITAMIN D35000 UNIT PO; +ZINC OXIDE28.4 G EX
[2022-08-13 18:34] LABS: BASO% 0.3 % (0-3); EOS% 4.6 % (0-8); LYMPH% 45.6 % (15-41); MEAN CORPUSCULAR HGB CONC 31.3 g/dL CAL (32.0-36.0); MONO% 3.8 % (2-13); NEUT# 2.68 thou/uL (2.00-7.15); NEUT% 45.7 % (42-76); RED BLOOD COUNT 3.08 mill/uL (4.20-5.60); RED CELL DISTRI WIDTH 12.3 % (11.5-15.5)
[2022-08-13 18:35] LABS: HEMATOCRIT 35.5 % (37.0-47.0); HEMOGLOBIN 11.1 g/dl (12.0-16.0); MEAN CELL VOLUME 115.3 fL CALC (80.0-100.0)
[2022-08-13 18:49] LABS: ALBUMIN 1.7 g/dL (3.2-5.0); ALKALINE PHOSPHATASE 60 u/l (38-126); ANION GAP 1 (6-22 (CALC)); BUN 7 mg/dL (7-17); BUN/CREATININE RATIO 11 (12-20 (CALC)); CARBON DIOXIDE 32 mmol/l (22-30); CHLORIDE 110 mmol/l (95-108); CREATININE 0.6 mg/dL (0.5-1.0); GFR FOR AFR.AMER. > 60 ML/MIN (>=60 (CALC)); GFR OTHER RACES > 60 ML/MIN (>=60 (CALC)); SGOT/AST 33 u/l (14-36); SODIUM 139 mmol/l (137-146); TOTAL PROTEIN 4.5 g/dL (6.3-8.2)
[2022-08-13 19:14] LABS: URINE BILIRUBIN - DIPSTICK NEGATIVE (NEGATIVE); URINE BLOOD DIPSTICK NEGATIVE (NEGATIVE); URINE COLOR YELLOW; URINE GLUCOSE - DIPSTICK NEGATIVE (NEGATIVE); URINE KETONE NEGATIVE (NEGATIVE); URINE LEUK ESTERASE NEGATIVE (NEGATIVE); URINE NITRITE - DIPSTICK NEGATIVE (Negative); URINE PH 6.5 (4.5-8.0); URINE PROTEIN - DIPSTICK NEGATIVE (NEG-TRACE); URINE UROBILINOGEN - DIPSTICK 0.2 E.U./dL (0.2)
[2022-08-14 03:01] VITALS: BP 110/62
[2022-08-14 03:10] VITALS: BP 110/62
== END 2022-08-14 03:18 | disposition home or self-care (01) ==
LOC: ED 17:46
PROVIDERS: Family Medicine
DX: R53.1 Weakness (principal); G89.4 Chronic pain syndrome; G90.A Postural orthostatic tachycardia syndrome [POTS]; F41.9 Anxiety disorder, unspecified; F31.9 Bipolar disorder, unspecified; Z20.822 Contact with and (suspected) exposure to COVID-19

== ENCOUNTER 2024-02-05 15:38 | Emergency (ER) | payer MEDICARE, MEDICAID ==
[~2024-02-05] VITALS: Ht 170.2 cm; Wt 97.5 kg
[2024-02-05] VITALS (13 sets, daily range): BP systolic 106–134; BP diastolic 36–83
[~2024-02-05 15:38] MED LIST changes: +BUSPAR15 M1 PO; +BUSPAR30 MG PO; +FLEXERIL5 M1 PO; +MAGNESIUM OXID400 M1 PO; +MELOXICAM7.5 MG PO; +NEURONTIN300 MG PO; +NEURONTIN600 MG PO; +SEROQUEL400 MG PO; +VILAZODONE 10 MG; +VISTARIL50 MG PO
[2024-02-05] MEDS ORDERED: oxyCODONE 5MG/ ACETAMINOPHEN 325MG TAB PO ONE (15:55)
[2024-02-05] MEDS ORDERED: CYCLOBENZAPRINE HCL 5 MG TAB PO ONE (16:00)
[2024-02-05] MEDS ORDERED: ONDANSETRON 4 MG/TAB ODT PO ONE (16:00)
[2024-02-05] MEDS ORDERED: methylPREDNISolone Sod Succ 40 MG/ML SDV IM ONE (16:00)
[2024-02-05] MEDS ORDERED: PERCOCET 5/325M1 TAB PO ×2 (18:16→18:19)
[2024-02-05] MEDS ORDERED: PREDNISONE20 MG PO (18:16)
== END 2024-02-05 18:38 | disposition home or self-care (01) ==
LOC: ED 15:38
DX: S63.92XA Sprain of unspecified part of left wrist and hand, initial encounter (principal); X58.XXXA Exposure to other specified factors, initial encounter; Z98.890 Other specified postprocedural states